=== PATIENT | female | born 1990 | race Caucasian/White ===

== ENCOUNTER 2022-03-24 22:43 | Emergency (ER) | payer SELFPAY ==
[~2022-03-24] VITALS: Ht 162.6 cm; Wt 95.5 kg
[2022-03-24 22:53] VITALS: BP 132/94
== END 2022-03-25 00:55 | disposition left against medical advice (07) ==
LOC: ER 22:44
DX: R06.02 Shortness of breath (principal); Z53.21 Procedure and treatment not carried out due to patient leaving prior to being seen by health care provider
CPT/HCPCS: 93005